=== PATIENT | male | born 1955 | race Caucasian/White ===

== ENCOUNTER 2017-12-15 08:14 | Day surgery (SDC) | payer BC ==
[2017-12-15] VITALS (7 sets, daily range): BP systolic 123–147; BP diastolic 73–86; PULSE 56–67; TEMP 97.8–98.5
[~2017-12-15] VITALS: Ht 193 cm; Wt 77.1 kg
[2017-12-15] MEDS ORDERED: NORCO 325 MG-51 TAB PO (09:08)
[2017-12-15] MEDS ORDERED: PRINZIDE 12.5 M1 TAB PO (09:09)
[2017-12-15] MEDS ORDERED: ASPIRIN E.C. 8181 MG PO (09:10)
[2017-12-15] MEDS ORDERED: [UNRECOGNIZED DRUG - OTHER] TP (09:10)
[2017-12-15] MEDS ORDERED: TRIUMEQ1 TAB PO (09:11)
[2017-12-15] MEDS ORDERED: MULTI VITAMINS1 TAB PO (09:11)
== END 2017-12-15 16:14 | disposition home or self-care (01) ==
LOC: SDCO 08:14
DX: K40.90 Unilateral inguinal hernia, without obstruction or gangrene, not specified as recurrent (principal); I10 Essential (primary) hypertension; B20 Human immunodeficiency virus [HIV] disease; Z79.82 Long term (current) use of aspirin; Z79.899 Other long term (current) drug therapy; B35.4 Tinea corporis
CPT/HCPCS: C1781; J1100; J1170; J1885; J2405; J2704; J3010; J7120